=== PATIENT | male | born 1955 | race African-American/Black ===

== ENCOUNTER 2016-11-10 19:00 | Emergency (ER) | payer OTHER ==
[~2016-11-10] VITALS: Ht 185.4 cm; Wt 100.0 kg
[~2016-11-10 19:00] MED LIST: ASPI-229; GLIP10TA72; LISI-604; METF-272; SIMV20TA2; SITA100T6
[2016-11-10 22:43] VITALS: BP 172/94
== END 2016-11-10 23:12 | disposition home or self-care (01) ==
LOC: ER 22:42
DX: S60.414A Abrasion of right ring finger, initial encounter (principal); X58.XXXA Exposure to other specified factors, initial encounter; Y93.89 Activity, other specified; Y92.096 Garden or yard of other non-institutional residence as the place of occurrence of the external cause; Z79.82 Long term (current) use of aspirin; E11.9 Type 2 diabetes mellitus without complications; Z79.84 Long term (current) use of oral hypoglycemic drugs; Z79.899 Other long term (current) drug therapy; R03.0 Elevated blood-pressure reading, without diagnosis of hypertension
CPT/HCPCS: 99281

== ENCOUNTER 2024-07-28 18:40 | Emergency (ER) | payer OTHER ==
[~2024-07-28] VITALS: Ht 182.9 cm; Wt 68.0 kg
[~2024-07-28 18:40] MED LIST changes: -ASPI-229; +ASPI81TA47; +GLIP10TA3; -GLIP10TA72; -LISI-604; +LISI20TA31; +SIMV-343; -SIMV20TA2; +SITA100T11; -SITA100T6
[2024-07-28 18:42] VITALS: O2SAT 97
[2024-07-28] MEDS: SODIUM CHLORIDE 0.9% (SEPSIS BOLUS) IV ONE (19:19)
[2024-07-28 19:26] LABS: HEMATOCRIT. 38.9 % (42.0-52.0); HEMOGLOBIN. 12.5 g/dL (14.0-18.0); MEAN CORPUSCULAR HEMOGLOBIN 28.9 pg (28.0-32.0); MEAN CORPUSCULAR HGB CONC 32.2 g/dL (31.0-37.0); MEAN CORPUSCULAR VOLUME 89.6 fL (80.0-94.0); PLATELET 122 x1000/uL (130-400); RED BLOOD CELL COUNT 4.34 mill/uL (4.7-6.1); RED CELL DISTRIBUTION WIDTH 18.7 % (11.6-14.6)
[2024-07-28 19:30] LABS: DIFFERENTIAL COMMENT 1
[2024-07-28 19:31] LABS: CHLORIDE 103 mEq/L (98-107); POTASSIUM 4.6 mEq/L (3.5-5.1); SODIUM 140 mEq/L (136-145)
[2024-07-28 19:32] LABS: CALCIUM 9.4 mg/dL (8.7-10.4); CARBON DIOXIDE 26 mEq/L (21-32)
[2024-07-28 19:36] LABS: INR 1.1; PROTHROMBIN TIME 11.9 sec (9.6-11.0)
[2024-07-28 19:37] LABS: UREA NITROGEN BLOOD 71 mg/dL (9-23)
[2024-07-28] MEDS: SODIUM CHLORIDE 0.9% 1,000 ML IV ONE (19:37)
[2024-07-28 19:39] LABS: ALANINE AMINOTRANSFERASE 19 IU/L (10-49); ASPARTATE AMINOTRANSFERASE 31 IU/L (<34); BILIRUBIN DIRECT 0.1 mg/dL (<=3.0)
[2024-07-28 19:40] LABS: BILIRUBIN TOTAL 0.3 mg/dL (0.1-1.0); PROTEIN TOTAL 7.7 g/dL (6.0-8.3)
[2024-07-28] MEDS: PIPERACILLIN/TAZO 3.375G/50ML 50 ML IV ONE (19:45)
[2024-07-28 19:46] LABS: GLUCOSE 115 mg/dL (70-105)
[2024-07-28 19:50] LABS: CREATININE 5.4 mg/dL (0.6-1.3); TROPONIN I HIGH SENSITIVITY 64 ng/L (3.0-53)
[2024-07-28 20:01] LABS: PLATELET ESTIMATE NORMAL; PLATELET SATELLITISM FEW
[2024-07-28 20:02] LABS: GIANT PLATELETS FEW
[2024-07-28] MEDS: ACETAMINOPHEN 325MG TABLET PO ONE (20:09)
[2024-07-28 23:02] VITALS: BP 130/53; PULSE 69; RESP 18; TEMP 37.3; O2SAT 95
== END 2024-07-28 23:30 | disposition short-term general hospital (02) ==
LOC: ER 18:40
DX: J18.9 Pneumonia, unspecified organism (principal); E11.22 Type 2 diabetes mellitus with diabetic chronic kidney disease; N18.6 End stage renal disease; Z20.822 Contact with and (suspected) exposure to COVID-19; Z79.899 Other long term (current) drug therapy; Z99.2 Dependence on renal dialysis; Z86.73 Personal history of transient ischemic attack (TIA), and cerebral infarction without residual deficits
CPT/HCPCS: 99291; 96365; 87426; 80076; 80048; 83605; 85025; 85610; 87040; 84484; 36415; 84145; 71045; 93005; J2543; J7030